=== PATIENT | male | born 1970 | race Caucasian/White ===

== ENCOUNTER 2018-02-09 09:16 | Emergency (ER) | payer MEDICAID ==
[2018-02-09] MEDS: KETOROLAC 30 MG INJ IM (09:39)
== END 2018-02-09 11:23 | disposition home or self-care (01) ==
LOC: FTE 09:16
DX: S89.91XA Unspecified injury of right lower leg, initial encounter (principal); J45.909 Unspecified asthma, uncomplicated; W18.39XA Other fall on same level, initial encounter; Y92.9 Unspecified place or not applicable
CPT/HCPCS: 29505; 73562; 96372; 99284-25

== ENCOUNTER 2018-02-24 19:28 | Emergency (ER) | payer MEDICAID | END 2018-02-24 20:36 | disposition home or self-care (01) | LOC: FTE 19:28 | DX: B35.1 Tinea unguium (principal); J45.909 Unspecified asthma, uncomplicated | CPT/HCPCS: 99283; Z7502 ==

== ENCOUNTER 2018-06-16 18:45 | Emergency (ER) | payer MEDICAID | END 2018-06-16 19:58 | disposition home or self-care (01) | LOC: FTE 18:45 | DX: H66.91 Otitis media, unspecified, right ear (principal); J45.909 Unspecified asthma, uncomplicated | CPT/HCPCS: 99283; Z7502 ==

== ENCOUNTER 2018-10-24 08:10 | Emergency (ER) | payer MEDICAID ==
[2018-10-24] MEDS: KETOROLAC 60 MG INJ IM (09:11)
== END 2018-10-24 10:09 | disposition home or self-care (01) ==
LOC: FTE 08:10
DX: S89.91XA Unspecified injury of right lower leg, initial encounter (principal); J45.909 Unspecified asthma, uncomplicated; W11.XXXA Fall on and from ladder, initial encounter; Y92.9 Unspecified place or not applicable
CPT/HCPCS: 29505; 73562; 96372; 99284-25

== ENCOUNTER 2018-12-08 16:22 | Emergency (ER) | payer MEDICAID ==
[2018-12-08 17:47] LABS: ADD UMIC NO; UR ASCORBIC ACID 40 mg/dL (NEGATIVE); UR BILIRUBIN (Dip) NEGATIVE (NEGATIVE); UR BLOOD (Dip) NEGATIVE (NEGATIVE); UR CLARITY SLIGHTLY CLOUDY (CLEAR); UR COLOR YELLOW (YELLOW); UR GLUCOSE (Dip) 3+ mg/dL (NEGATIVE); UR KETONES (Dip) NEGATIVE (NEGATIVE); UR LEUKOCYTE ESTERASE (Dip) NEGATIVE Leu/ul (NEGATIVE); UR NITRITE (Dip) NEGATIVE (NEGATIVE); UR RBC 1 /HPF (0-5); UR SPECIFIC GRAVITY (Dip) 1.031 (1.003-1.030); UR TOTAL PROTEIN (Dip) NEGATIVE (NEGATIVE); UR UROBILINOGEN (Dip) NEGATIVE (NEGATIVE); UR WBC 1 /HPF (0-5)
== END 2018-12-08 18:12 | disposition home or self-care (01) ==
LOC: FTE 18:12
DX: R30.0 Dysuria (principal)
CPT/HCPCS: 81001; 81003; 87086; 99283

== ENCOUNTER 2019-03-30 19:30 | Emergency (ER) | payer MEDICAID ==
[2019-03-30] MEDS: LIDOCAINE 2%/EPI MPF (SDV) 20 ML VIAL INJ (20:46)
[2019-03-30] MEDS: SODIUM CHLORIDE 0.9% 1L IRRIG IRR (20:47)
[2019-03-30] MEDS: DIPHTH/TET/ACEL PERTUSS (ADULT) 0.5 ML VIAL IM* (20:54)
== END 2019-03-30 22:09 | disposition home or self-care (01) ==
LOC: FTE 19:30
DX: S81.811A Laceration without foreign body, right lower leg, initial encounter (principal); J45.909 Unspecified asthma, uncomplicated; W26.8XXA Contact with other sharp object(s), not elsewhere classified, initial encounter; Y92.9 Unspecified place or not applicable; Z23 Encounter for immunization
CPT/HCPCS: 12001; 90471; 90715; 99283-25

== ENCOUNTER → 2019-04-07 | Emergency (ER) | payer MEDICAID | END | disposition home or self-care (01) | LOC: FTE 19:44 | DX: Z48.02 Encounter for removal of sutures (principal); J45.909 Unspecified asthma, uncomplicated | CPT/HCPCS: 99281; Z7502 ==